=== PATIENT | male | born 1975 | race Caucasian/White ===

== ENCOUNTER 2021-05-24 13:18 | Observation (INO) ==
[2021-05-24] MEDS ORDERED: cefTRIAXone 1,000 MG in Water for inj. (sterile) 10 ML IVP ONE (13:54)
[2021-05-24] MEDS ORDERED: Azithromycin 500 MG in 0.9 % Sodium Chloride 250 ML IVPB ONE (13:54)
[2021-05-24 14:10] LABS: Bilirubin,Urine Small (Negative); Blood,Urine Negative (Negative); Clarity,Urine Clear (Clear); Color,Urine Yellow (Yellow); Glucose,Urine (UA) Normal (Normal); Ketones,Urine Trace mg/dL (Negative); Leukocyte Esterase,Urine Trace (Negative); Nitrite,Urine Negative (Negative); PH,Urine 8.5 pH Units (5.0-8.0); Protein,Urine 30 mg/dL (Neg-Trace); Urobilinogen,Urine Normal (Normal)
[2021-05-24 14:17] LABS: Bacteria,Urine Few per hpf (None-Few); Mucus,Urine Moderate per lpf (None-Few); RBC,Urine 0-3 per hpf (0-3); Squamous Epithelial Cell,Urine Few per hpf (None-Few); WBC,Urine 30-50 per hpf (0-3)
[2021-05-24 14:25] LABS: Basophils % 0.3 %; Eosinophils % 0.1 %; Hematocrit 47.6 % (37.5-50.1); Hemoglobin 16.7 g/dL (12.9-16.9); Immature Granulocytes % 0.4 % (0-4); Lymphocytes # 0.8 K/mcL (0.6-4.6); Lymphocytes % 6.3 %; Mean Corpuscular HGB Conc 35.1 g/dL (31.6-35.5); Mean Corpuscular Hemoglobin 30.5 pg (28.0-33.3); Mean Corpuscular Volume 86.9 fL (83.0-100.0); Mean Platelet Volume 8.9 fL (9.4-12.4); Monocytes # 1.1 K/mcL (0.0-1.3); Monocytes % 9.5 %; Neutrophils # 9.9 K/mcL (1.6-8.9); Platelet Count 206 K/mcL (140-400); Red Blood Count 5.48 M/mcL (4.19-5.50); Red Cell Distribution Width 12.5 % (11.5-14.5); Segmented Neutrophils % 83.4 %; White Blood Count 11.9 K/mcL (4.3-11.1)
[2021-05-24] MEDS: 0.9 % Sodium Chloride 1,000 ML IVC SCH ×4 (14:32→20:54)
[2021-05-24 14:34] LABS: INR 1.1
[2021-05-24 14:37] LABS: Activated Partial Thrombo Time 31.5 Seconds (26.0-36.0)
[2021-05-24 14:45] LABS: Alanine Aminotransferase 13 Units/L (7-52); Albumin 4.5 g/dL (3.5-5.7); Albumin/Globulin Ratio 1.6 (1.1-2.2); Alkaline Phosphatase 58 Units/L (34-104); Aspartate Amino Transferase 13 Units/L (13-39); BUN/Creatinine Ratio 10 (6-26); Bilirubin,Direct 0.2 mg/dL (0.0-0.2); Bilirubin,Indirect 0.9 mg/dL (0.0-1.0); Bilirubin,Total 1.1 mg/dL (0.3-1.0); Blood Urea Nitrogen 14 mg/dL (6-20); Calcium 9.5 mg/dL (8.6-10.3); Carbon Dioxide 23 mEq/L (23-29); Chloride 102 mEq/L (98-107); Globulin 2.9 g/dL (2.4-3.5); Glucose 119 mg/dL (70-105); Magnesium 1.7 mg/dL (1.6-2.6); Osmolality,Calculated 280 (280-300); Phosphorous 1.4 mg/dL (2.7-4.5); Potassium 3.9 mEq/L (3.5-5.1); Sodium 134 mEq/L (136-145); Total Protein 7.4 g/dL (6.4-8.9); Troponin I < 0.03 ng/mL (< 0.04); eGFR For African Americans > 60 (> 60); eGFR For Non-African Americans 57 (> 60)
[2021-05-24] MEDS ORDERED: Naloxone 0.4 MG/ML INJ IVP PRN (16:17)
[2021-05-24] MEDS ORDERED: traZODone 50 MG TABLET PO PRN (16:19)
[2021-05-24] MEDS: Acetaminophen 325 MG TABLET PO PRN (20:58)
[2021-05-24] MEDS: *HR* LORazepam 1 MG TABLET PO SCH (20:58)
[2021-05-25] MEDS: *HR* Enoxaparin 40 MG/0.4 ML SYRINGE SQ SCH (05:39)
[2021-05-25] MEDS: 0.9 % Sodium Chloride 1,000 ML IVC SCH (05:39)
[2021-05-25] MEDS: Acetaminophen 325 MG TABLET PO PRN (05:48)
[2021-05-25 07:24] LABS: Basophils % 0.2 %; Hematocrit 40.1 % (37.5-50.1); Hemoglobin 13.6 g/dL (12.9-16.9); Immature Granulocytes % 0.5 % (0-4); Lymphocytes # 1.1 K/mcL (0.6-4.6); Lymphocytes % 9.2 %; Mean Corpuscular HGB Conc 33.9 g/dL (31.6-35.5); Mean Corpuscular Hemoglobin 30.1 pg (28.0-33.3); Mean Corpuscular Volume 88.7 fL (83.0-100.0); Mean Platelet Volume 9.5 fL (9.4-12.4); Monocytes # 1.4 K/mcL (0.0-1.3); Monocytes % 11.4 %; Neutrophils # 9.5 K/mcL (1.6-8.9); Platelet Count 156 K/mcL (140-400); Red Blood Count 4.52 M/mcL (4.19-5.50); Red Cell Distribution Width 12.7 % (11.5-14.5); Segmented Neutrophils % 78.7 %; White Blood Count 12.1 K/mcL (4.3-11.1)
[2021-05-25 07:54] LABS: BUN/Creatinine Ratio 11 (6-26); Blood Urea Nitrogen 12 mg/dL (6-20); Calcium 8.2 mg/dL (8.6-10.3); Carbon Dioxide 21 mEq/L (23-29); Chloride 108 mEq/L (98-107); Glucose 84 mg/dL (70-105); Osmolality,Calculated 287 (280-300); Potassium 3.4 mEq/L (3.5-5.1); Sodium 139 mEq/L (136-145); eGFR For African Americans > 60 (> 60); eGFR For Non-African Americans > 60 (> 60)
[2021-05-25] MEDS: Topiramate 25 MG TABLET PO SCH (08:51)
[2021-05-25] MEDS: *HR* LORazepam 1 MG TABLET PO SCH ×2 (08:56→20:14)
[2021-05-25] MEDS: Folic Acid 1 MG TABLET PO SCH (08:57)
[2021-05-25] MEDS: Cholecalciferol (D-3) 1,000 UNIT (25MCG) TABLET PO SCH (08:57)
[2021-05-25] MEDS: Mirtazapine 15 MG TABLET PO SCH (08:57)
[2021-05-25] MEDS: Ondansetron 4 MG/2 ML VIAL IVP PRN ×2 (08:57→20:14)
[2021-05-25] MEDS ORDERED: *HR* LORazepam 1 MG TABLET PO PRN (13:00)
[2021-05-25] MEDS: Ringers Solution, Lactated 1,000 ML IVC SCH ×2 (13:21→23:46)
[2021-05-25] MEDS: cefTRIAXone 2,000 MG in 0.9 % Sodium Chloride Mini Bag 100 ML IVPB SCH (15:59)
[2021-05-26] MEDS: *HR* Enoxaparin 40 MG/0.4 ML SYRINGE SQ SCH (05:21)
[2021-05-26 05:42] LABS: Basophils % 0.4 %; Eosinophils % 0.3 %; Hematocrit 40.3 % (37.5-50.1); Hemoglobin 13.8 g/dL (12.9-16.9); Immature Granulocytes % 0.5 % (0-4); Lymphocytes # 1.2 K/mcL (0.6-4.6); Lymphocytes % 11.4 %; Mean Corpuscular HGB Conc 34.2 g/dL (31.6-35.5); Mean Corpuscular Hemoglobin 30.3 pg (28.0-33.3); Mean Corpuscular Volume 88.6 fL (83.0-100.0); Mean Platelet Volume 8.8 fL (9.4-12.4); Monocytes # 1.3 K/mcL (0.0-1.3); Monocytes % 12.1 %; Neutrophils # 8.2 K/mcL (1.6-8.9); Platelet Count 135 K/mcL (140-400); Red Blood Count 4.55 M/mcL (4.19-5.50); Red Cell Distribution Width 12.7 % (11.5-14.5); Segmented Neutrophils % 75.3 %; White Blood Count 10.9 K/mcL (4.3-11.1)
[2021-05-26] MEDS: Folic Acid 1 MG TABLET PO SCH (07:57)
[2021-05-26] MEDS: *HR* LORazepam 1 MG TABLET PO SCH ×2 (07:57→20:03)
[2021-05-26] MEDS: Mirtazapine 15 MG TABLET PO SCH (07:57)
[2021-05-26] MEDS: Cholecalciferol (D-3) 1,000 UNIT (25MCG) TABLET PO SCH (07:57)
[2021-05-26] MEDS: Topiramate 25 MG TABLET PO SCH (07:57)
[2021-05-26 08:34] LABS: BUN/Creatinine Ratio 7 (6-26); Blood Urea Nitrogen 7 mg/dL (6-20); Calcium 8.3 mg/dL (8.6-10.3); Carbon Dioxide 20 mEq/L (23-29); Chloride 109 mEq/L (98-107); Glucose 99 mg/dL (70-105); Osmolality,Calculated 288 (280-300); Potassium 3.5 mEq/L (3.5-5.1); Sodium 140 mEq/L (136-145); eGFR For African Americans > 60 (> 60); eGFR For Non-African Americans > 60 (> 60)
[2021-05-26] MEDS: cefTRIAXone 2,000 MG in 0.9 % Sodium Chloride Mini Bag 100 ML IVPB SCH (15:01)
[2021-05-26] MEDS ORDERED: Cefdinir 300 MG CAPSULE PO ONE (16:15)
[2021-05-26 18:15] VITALS: BP 106/76; PULSE 88; RESP 16; TEMP 98.4; O2SAT 97
[2021-05-27] MEDS ORDERED: Cefdinir 300 MG CAPSULE PO ONE (15:03)
== END 2021-05-26 20:22 | disposition home or self-care (01) ==
LOC: EMEROOPIK 13:18 → INPPIK 13:18
PROVIDERS: ADMIT Family Medicine; ATTEND Family Medicine